=== PATIENT | female | born 1945 | race Caucasian/White ===

== ENCOUNTER 2019-07-31 05:59 | Outpatient (CLI) | payer MEDICARE, OTHER ==
[~2019-07-31] VITALS: Ht 157.5 cm; Wt 63.5 kg
[2019-07-31] MEDS ORDERED: SIMV20TA3 PO (14:31)
[2019-07-31] MEDS ORDERED: LISI10TA2 PO (14:31)
[2019-07-31] MEDS ORDERED: CALC600T12 PO (14:31)
[2019-07-31] MEDS ORDERED: ASCO500C17 PO (14:31)
[2019-07-31] MEDS ORDERED: HYDR25TA4 PO (14:31)
[2019-07-31] MEDS ORDERED: ATEN50TA PO (14:31)
[2019-07-31] MEDS ORDERED: MV-M1TAB57 PO (14:31)
[2019-07-31] MEDS ORDERED: ASPI-586 PO (14:31)
[2019-07-31] MEDS ORDERED: CHOL200025 PO (14:31)
== END 2019-07-31 14:35 | disposition home or self-care (01) ==
LOC: PREOP 05:59
PROVIDERS: ATTEND Specialist
DX: Z01.818 Encounter for other preprocedural examination (principal)

== ENCOUNTER 2019-08-02 07:30 | Day surgery (SDC) | payer MEDICARE, OTHER ==
[~2019-08-02] VITALS: Ht 157.5 cm; Wt 63.5 kg
[~2019-08-02 07:30] MED LIST: ASCO500C17 PO; ASPI-586 PO; ATEN50TA PO; CALC600T12 PO; CHOL200025 PO; HYDR25TA4 PO; LISI10TA2 PO; MV-M1TAB57 PO; SIMV20TA3 PO
[2019-08-02 07:42] VITALS: BP 170/79
[2019-08-02] MEDS ORDERED: LIDOCAINE PF 1% 2 ML AMP IR PRN (07:45)
[2019-08-02] MEDS ORDERED: POVIDONE (BETADINE) OPHTH SOLN 5% 30 ML OP ONE (07:45)
[2019-08-02] MEDS ORDERED: MOXIFLOXACIN OPHTH SOLN 5 MG/ML 0.3 ML SYRINGE OP ONE (07:45)
[2019-08-02] MEDS ORDERED: TIMOLOL MALEATE 0.5% 5 ML (TIMOPTIC) BTL OU PRN (07:45)
[2019-08-02] MEDS: TETRACAINE 0.5% OPHTH SOLN 4 ML BTL (SINGLE DOSE ONLY) OU PRN ×4 (07:52→08:24)
[2019-08-02] MEDS: CYCLOPENTOLATE 1% (CYCLOGYL) 2 ML DROPS OP SCH ×3 (08:02→08:24)
[2019-08-02] MEDS: PHENYLEPHRINE 10% OPHTH (NEO-SYN) 5 ML BTL OU SCH ×3 (08:02→08:24)
[2019-08-02] MEDS ORDERED: MIDAZOLAM 2 MG/2 ML (VERSED) VIAL ONE (08:16)
--- NOTE | 2019-08-02 08:43 | Ophthalmologist Pre-Op Note ---
Pre-Operative Progress Note H&P Reviewed The H&P was reviewed, patient examined and no changes noted. Date H&P Reviewed: Aug 02, 2019 Time H&P Reviewed: 08:43 Pre-Op Dx Cataract, Right Eye CORETTA KAUR MD Aug 02, 2019 08:43
--- NOTE | 2019-08-02 09:09 | Ophthalmology Operative Report ---
Cataract removal/placement IOL PREOPERATIVE DIAGNOSIS: Cataract Right Eye POSTOPERATIVE DIAGNOSIS: Cataract Right Eye PROCEDURE: Cataract removal and placement of posterior chamber implant, right eye SURGEON: Shemar Kaur ANESTHESIA: Topical with sedation COMPLICATIONS: None ESTIMATED BLOOD LOSS: Minimal DESCRIPTION OF PROCEDURE: After proper informed consent was obtained, the patient, a 73 female, was taken to the Operating Room and the right eye was anesthetized with tetracaine. The right eye was then prepped and draped in the usual manner. A wire lid speculum was placed. A paracentesis was made at the left hand position. Preservative free lidocaine was injected into the anterior chamber followed by viscoelastic. A clear corneal incision was made in the temporal position. A capsulorrhexis was preformed and the central nuclear and cortical material were removed. The posterior capsule was polished and Beto AU00T0 22.0 IOL was placed into the capsular bag. The residual viscoelastic was aspirated and balanced saline solution was injected into the anterior chamber. Moxifloxacin was injected into the anterior chamber. The wound was checked and found to be water tight. The patient tolerated the procedure well without complications. SHEMAR KAUR MD Aug 02, 2019 09:09
[2019-08-02 09:16] VITALS: BP 152/76
[2019-08-02] MEDS ORDERED: acetaZOLAMIDE ER 500 MG CAP (DIAMOX SEQUELS) PO ONE (09:30)
--- NOTE | 2019-08-02 13:16 | Anesthesia-General Post-Op ---
MAC Patient Condition Mental Status/LOC: Same as Preop Cardiovascular: Satisfactory Nausea/Vomiting: Absent Respiratory: Satisfactory Pain: Controlled Complications: Absent Post Op Complications Complications None Follow Up Care/Instructions Patient Instructions None needed. Anesthesiology Discharge Order Discharge Order Patient was seen after the procedure and she was doing well, no complaints, stable vital signs, no apparent adverse anesthesia problems. SANIA LARA DO Aug 02, 2019 13:16
== END 2019-08-02 09:16 | disposition home or self-care (01) ==
LOC: SDC 07:30
PROVIDERS: ATTEND Specialist
DX: H25.11 Age-related nuclear cataract, right eye (principal); I10 Essential (primary) hypertension; E78.00 Pure hypercholesterolemia, unspecified; E78.5 Hyperlipidemia, unspecified; Z88.0 Allergy status to penicillin; Z79.899 Other long term (current) drug therapy; Z90.710 Acquired absence of both cervix and uterus; Z90.89 Acquired absence of other organs; Z79.82 Long term (current) use of aspirin

== ENCOUNTER 2019-08-09 06:30 | Day surgery (SDC) | payer MEDICARE, OTHER ==
[~2019-08-09] VITALS: Ht 157.5 cm; Wt 63.6 kg
[2019-08-09 06:45] VITALS: BP 163/89
[2019-08-09] MEDS ORDERED: MOXIFLOXACIN OPHTH SOLN 5 MG/ML 0.3 ML SYRINGE OP ONE (06:45)
[2019-08-09] MEDS ORDERED: POVIDONE (BETADINE) OPHTH SOLN 5% 30 ML OP ONE (06:45)
[2019-08-09] MEDS ORDERED: TIMOLOL MALEATE 0.5% 5 ML (TIMOPTIC) BTL OU PRN (06:45)
[2019-08-09] MEDS ORDERED: LIDOCAINE PF 1% 2 ML AMP IR PRN (06:45)
[2019-08-09] MEDS: TETRACAINE 0.5% OPHTH SOLN 4 ML BTL (SINGLE DOSE ONLY) OU PRN ×4 (06:49→07:12)
[2019-08-09] MEDS: CYCLOPENTOLATE 1% (CYCLOGYL) 2 ML DROPS OP SCH ×3 (07:02→07:12)
[2019-08-09] MEDS: PHENYLEPHRINE 10% OPHTH (NEO-SYN) 5 ML BTL OU SCH ×3 (07:03→07:12)
--- NOTE | 2019-08-09 07:44 | Ophthalmologist Pre-Op Note ---
Pre-Operative Progress Note H&P Reviewed The H&P was reviewed, patient examined and no changes noted. Date H&P Reviewed: Aug 09, 2019 Time H&P Reviewed: 07:44 Pre-Op Dx Cataract, Left Eye CORETTA KAUR MD Aug 09, 2019 07:44
[2019-08-09] MEDS ORDERED: MIDAZOLAM 2 MG/2 ML (VERSED) VIAL ONE (07:49)
--- NOTE | 2019-08-09 08:04 | Ophthalmology Operative Report ---
Cataract removal/placement IOL PREOPERATIVE DIAGNOSIS: Cataract Left Eye POSTOPERATIVE DIAGNOSIS: Cataract Left Eye PROCEDURE: Cataract removal and placement of posterior chamber implant, left eye SURGEON: Shemar Kaur ANESTHESIA: Topical with sedation COMPLICATIONS: None ESTIMATED BLOOD LOSS: Minimal DESCRIPTION OF PROCEDURE: After proper informed consent was obtained, the patient, a 73 female, was taken to the Operating Room and the left eye was anesthetized with tetracaine. The left eye was then prepped and draped in the usual manner. A wire lid speculum was placed. A paracentesis was made at the left hand position. Preservative free lidocaine was injected into the anterior chamber followed by viscoelastic. A clear corneal incision was made in the temporal position. A capsulorrhexis was preformed and the central nuclear and cortical material were removed. The posterior capsule was polished and an Beto 21.0 AU00T0 was placed into the capsular bag. The residual viscoelastic was aspirated and balanced saline solution was injected into the anterior chamber. Moxifloxacin was injected into the anterior chamber. The wound was checked and found to be water tight. The patient tolerated the procedure well without complications. SHEMAR KAUR MD Aug 09, 2019 08:04
[2019-08-09 08:20] VITALS: BP 140/76
[2019-08-09] MEDS ORDERED: acetaZOLAMIDE ER 500 MG CAP (DIAMOX SEQUELS) PO ONE (08:30)
== END 2019-08-09 08:20 | disposition home or self-care (01) ==
LOC: SDC 06:30
PROVIDERS: ATTEND Specialist
DX: H25.12 Age-related nuclear cataract, left eye (principal); E78.5 Hyperlipidemia, unspecified; E78.00 Pure hypercholesterolemia, unspecified; I10 Essential (primary) hypertension; Z88.0 Allergy status to penicillin; Z90.49 Acquired absence of other specified parts of digestive tract; Z90.710 Acquired absence of both cervix and uterus; Z79.82 Long term (current) use of aspirin; Z79.899 Other long term (current) drug therapy

== ENCOUNTER → 2022-02-24 | Outpatient (CLI) | payer MEDICARE, OTHER ==
[~2022-02-24] VITALS: Ht 157.4 cm; Wt 59.1 kg
[~2022-02-24] MED LIST changes: -CALC600T12 PO; +CALC600T91 PO; -LISI10TA2 PO; +LISI10TA25 PO; +SIMV20TA26 PO; -SIMV20TA3 PO
== END | disposition home or self-care (01) ==
LOC: PREOP 08:09
PROVIDERS: ATTEND Specialist
DX: Z01.818 Encounter for other preprocedural examination (principal)